=== PATIENT | male | born 1965 ===

== ENCOUNTER 2022-01-06 10:03 | Emergency (ER) | payer SELFPAY ==
--- NOTE | 2022-01-06 15:53 | Event Note ---
ED Screening Note ED Screening Note: 56-year-old male presents with right leg pain and swelling. Patient reports he was bitten by a cat 2 weeks ago and has been having swelling there since. General: Nontoxic appearing no acute distress Cardiac: Regular rate, normal heart sounds Respiratory: Normal lung sounds bilaterally no use of wire strander muscles GI/-normal sounds, nontender no guarding Musculoskeletal-swelling right lower leg Neuro-alert oriented x4. In the setting of a significantly high volume and record number of patients presenting to the emergency department and the fact that we have a limited space to see patients we have implemented the provider in triage protocol this allows an expedited initial exam of patients that might otherwise have left without being seen or who would wait longer than usual to be seen by provider. I interviewed the patient and performed a limited physical exam. This patient is a pulled from the waiting room to triage room for an initial assessment of adrenal studies and then returned to the waiting room pending results of the studies. The ultimate final evaluation and disposition may be performed by another provider depending on room and provider availability.
[2022-01-06] MEDS ORDERED: HYDROcodone/ACETAMINOPHEN 5-325 MG TAB PO ONE ×2 (16:33→20:00)
[2022-01-06] MEDS ORDERED: TETANUS,DIPH,PERTUSS(ACELL) VACCINE 0.5 ML SYRINGE IM ONE (19:04)
--- NOTE | 2022-01-06 19:07 | Emergency Department Report ---
ED Laceration [facility] - HPI Chief Complaint: Extremity Injury, Lower Stated Complaint: RIGHT LOWER LEG PAIN Time Seen by Provider: 01/06/22 18:29 Location: Lower Extremity Severity: mild Tetanus Status: Up to Date Laceration Symptoms: Yes Pain, No Foreign Body Sensation, No Numbness, No Weakness Other History: This is a 56-year-old male presents to the ED complaining of a cat scratch/bite that happened a couple of days ago. Patient states he was handling a friend's cat when the cat excellently scratched and bit his right lower posterior leg. Patient states he has had pain and redness to the area since then. Patient denies any fever, chills, nausea vomiting. Patient notes unsure if tetanus are up-to-date. ED Review of Systems ROS: Stated complaint: RIGHT LOWER LEG PAIN Other details as noted in HPI Comment: All other systems reviewed and negative Constitutional: no symptoms reported Musculoskeletal: as per HPI ED Past Medical Hx - Medications Home Medications: Home Medications Medication Instructions Recorded Confirmed Last Taken Type Amoxicillin/K Clav Tab [Augmentin 1 tab PO Q12HR #20 tab 01/06/22 Unknown Rx 875 mg] Ibuprofen [Motrin] 800 mg PO Q8HR #30 tablet 01/06/22 Unknown Rx Laceration Physical Exam - Exam General: Vital signs noted. No distress. Alert and acting appropriately. Laceration Location: Lower Extremity Full Body Front + Back: 1 - 2 small abrasion/puncture wound consistent with animal bite. Laceration Exam: Yes Normal Distal CMS, No Foreign Body, No Exposed Tendon, Vessel, or Nerve, No Tendon Injury ED Course Vital Signs 01/06/22 10:27 Temperature 98.4 F Pulse Rate 76 Respiratory 18 Rate Blood Pressure 140/82 [Left] O2 Sat by Pulse 99 Oximetry ED Medical Decision Making - Medical Decision Making 56-year-old female presents to ED after sustaining a cat bite ED course: Patient received tetanus booster in the ED. Patient states she understands instructions given. She is alert and oriented 3 she has no neurological deficit and states she will follow up Vital signs are normal ,she is in no distress Critical care attestation.: If time is entered above; I have spent that time in minutes in the direct care of this critically ill patient, excluding procedure time. ED Disposition Clinical Impression: Cellulitis of leg without foot, right, Cat bite Disposition: HOME / SELF CARE / HOMELESS Is pt being admited?: No Does the pt Need Aspirin: No Condition: Stable Instructions: Animal Bite, Adult, [id number], Cellulitis, Adult, [id number] Additional Instructions: Make sure to follow up with the primary care physician as discussed. Take all your medications as you've been prescribed. If you have any worsening symptoms or develop new symptoms please return to ED immediately. Prescriptions: Amoxicillin/K Clav Tab [Augmentin 875 mg] 1 tab PO Q12HR #20 tab Ibuprofen [Motrin] 800 mg PO Q8HR #30 tablet Referrals: [facility] [Outside] - 3-5 Days [facility] [Outside] - 3-5 Days [facility] [Outside] - 3-5 Days Forms: Work/School Release Form Time of Disposition: 19:10
[2022-01-06 20:46] VITALS: BP 136/75
== END 2022-01-06 20:46 | disposition home or self-care (01) ==
LOC: ED 10:03
DX: L03.115 Cellulitis of right lower limb (principal); Z79.899 Other long term (current) drug therapy; W55.01XA Bitten by cat, initial encounter; Y93.89 Activity, other specified; Y92.89 Other specified places as the place of occurrence of the external cause; Y99.8 Other external cause status
CPT/HCPCS: 90471; 90715; 99283